=== PATIENT | female | born 1970 | race African-American/Black ===

== ENCOUNTER 2023-06-13 13:02 | Outpatient (REF) | payer MEDICAID, SELFPAY ==
[2023-06-13 15:34] LABS: Erythrocyte Sedimentation Rate 17 MM/HR (0-20)
[2023-06-14 09:18] LABS: Lyme Abs Screen <0.90 index
== END 2023-06-13 13:03 | disposition home or self-care (01) ==
LOC: HO.LAB 13:02
PROVIDERS: Visit Provider Psychiatry & Neurology Neurology
DX: G43.009 Migraine without aura, not intractable, without status migrainosus (principal)
CPT/HCPCS: 36415; 85652; 86617; 86618